=== PATIENT | female | born 1990 | race Caucasian/White ===

== ENCOUNTER 2024-06-02 20:50 | Inpatient (IN) | payer OTHER, MEDICAID ==
[~2024-06-02] VITALS: Ht 162.6 cm; Wt 57.2 kg
[2024-06-02 22:00] LABS: BASOPHILS % 0.5 % (0.0-2.0); HEMATOCRIT. 38.9 % (36.0-48.0); HEMOGLOBIN. 12.9 g/dL (12.0-16.0); LYMPHOCYTES % 34.5 % (20.0-50.0); MEAN CORPUSCULAR HEMOGLOBIN 30.3 pg (28.0-32.0); MEAN CORPUSCULAR HGB CONC 33.3 g/dL (31.0-37.0); MEAN PLATELET VOLUME 8.9 fl (7.4-10.4); MONOCYTES % 6.2 % (2.0-8.0); NEUTROPHILS % 57.8 % (40.0-76.0); PLATELET 221 x1000/uL (130-400); RED BLOOD CELL COUNT 4.27 mill/uL (4.2-5.4); RED CELL DISTRIBUTION WIDTH 13.1 % (11.6-14.6); WHITE BLOOD COUNT 8.4 x1000/uL (4.5-11.0)
[2024-06-02 22:10] LABS: CHLORIDE 105 mEq/L (98-107); POTASSIUM 3.9 mEq/L (3.5-5.1); SODIUM 138 mEq/L (136-145)
[2024-06-02 22:11] LABS: CALCIUM 9.6 mg/dL (8.7-10.4); CARBON DIOXIDE 26 mEq/L (21-32)
[2024-06-02 22:16] LABS: CREATININE 0.8 mg/dL (0.6-1.0); GLUCOSE 86 mg/dL (70-105); UREA NITROGEN BLOOD 13 mg/dL (9-23)
[2024-06-02 22:33] LABS: B-HCG QUANTITATIVE 4240 mIU/mL (<3); TROPONIN I HIGH SENSITIVITY < 4 ng/L (3.0-34)
[2024-06-02 22:37] LABS: D-DIMER < 0.19 mg/L FEU (<0.50); PROTHROMBIN TIME 10.9 sec (9.6-11.0)
[2024-06-03 01:59] LABS: ALANINE AMINOTRANSFERASE 65 IU/L (10-49); ALBUMIN 4.8 g/dL (3.2-4.8); ASPARTATE AMINOTRANSFERASE 28 IU/L (<34); BILIRUBIN DIRECT 0.1 mg/dL (<=3.0); BILIRUBIN TOTAL 0.5 mg/dL (0.1-1.0); PROTEIN TOTAL 7.6 g/dL (6.0-8.3)
[2024-06-03] MEDS ORDERED: IPRATROPIUM/ALBUTEROL 0.5-3(2.5)MG/3ML NEB HHN PRN (11:45)
[2024-06-03] MEDS ORDERED: KETOROLAC 15MG/ML VIAL IV PRN (11:45)
[2024-06-03] MEDS: DEXT 5%/0.45% NACL 1000ML 1,000 ML IV SCH (11:45)
[2024-06-03 11:49] LABS: CLARITY URINE CLEAR (CLEAR); COLOR URINE YELLOW (YELLOW); GLUCOSE URINE NEGATIVE (NEGATIVE); KETONES URINE NEGATIVE (NEGATIVE); LEUKOCYTE ESTERASE URINE 2+ (NEGATIVE); NITRITE URINE NEGATIVE (NEGATIVE); OCCULT BLOOD URINE NEGATIVE (NEGATIVE); PH URINE 7.5 (4.5-8.0); PROTEIN URINE NEGATIVE (NEGATIVE); SPECIFIC GRAVITY URINE 1.017 (1.005-1.030)
[2024-06-03 12:01] LABS: *AMPHETAMINES SCREEN URINE NEGATIVE (NEGATIVE); *BARBITURATES SCREEN URINE NEGATIVE (NEGATIVE); *BENZODIAZEPINES SCREEN URINE NEGATIVE (NEGATIVE); *COCAINE SCREEN URINE NEGATIVE (NEGATIVE); METHADONE URINE SCREEN NEGATIVE (NEGATIVE); OPIATES URINE SCREEN NEGATIVE (NEGATIVE)
[2024-06-03 12:02] LABS: CANNABINOID URINE SCREEN NEGATIVE (NEGATIVE); ECSTASY MDMA SCREEN URINE NEGATIVE (NEGATIVE); PHENCYCLIDINE URINE SCREEN NEGATIVE (NEGATIVE)
[2024-06-03 12:18] LABS: BACTERIA URINE FEW; RBC URINE NONE SEEN /hpf (0-2); SQUAMOUS EPITHELIAL CELL URINE FEW /lpf (RARE/1+); WBC URINE 0-2 /hpf (0-2); YEAST URINE NONE SEEN
[2024-06-03] MEDS: ACETAMINOPHEN 325MG TABLET PO PRN (21:35)
[2024-06-03] MEDS: FAMOTIDINE 20MG TABLET PO SCH (21:35)
[2024-06-03] MEDS: DOCUSATE SODIUM 250MG CAPSULE PO PRN (21:35)
[2024-06-04 00:34] VITALS: BP 112/66; PULSE 94; RESP 18; TEMP 36.696
[2024-06-04 04:00] VITALS: BP 99/59; PULSE 64; RESP 18; TEMP 36.44736; O2SAT 99
[2024-06-04 07:10] LABS: BASOPHILS % 0.4 % (0.0-2.0); EOSINOPHILS % 1.3 % (0.0-5.0); HEMATOCRIT. 40.8 % (36.0-48.0); HEMOGLOBIN. 13.6 g/dL (12.0-16.0); MEAN CORPUSCULAR HEMOGLOBIN 30.2 pg (28.0-32.0); MEAN CORPUSCULAR HGB CONC 33.4 g/dL (31.0-37.0); MEAN CORPUSCULAR VOLUME 90.5 fL (81.0-99.0); MEAN PLATELET VOLUME 8.8 fl (7.4-10.4); MONOCYTES % 5.8 % (2.0-8.0); NEUTROPHILS % 65.5 % (40.0-76.0); PLATELET 219 x1000/uL (130-400); RED BLOOD CELL COUNT 4.51 mill/uL (4.2-5.4); RED CELL DISTRIBUTION WIDTH 13.5 % (11.6-14.6); WHITE BLOOD COUNT 7.9 x1000/uL (4.5-11.0)
[2024-06-04 07:29] LABS: CARBON DIOXIDE 26 mEq/L (21-32); CHLORIDE 106 mEq/L (98-107); POTASSIUM 3.7 mEq/L (3.5-5.1); SODIUM 137 mEq/L (136-145)
[2024-06-04 07:30] LABS: CALCIUM 9.3 mg/dL (8.7-10.4)
[2024-06-04 07:35] LABS: CREATININE 0.6 mg/dL (0.6-1.0); GLUCOSE 92 mg/dL (70-105); TRIGLYCERIDE 98 mg/dL (0-150); UREA NITROGEN BLOOD 9 mg/dL (9-23)
[2024-06-04 07:36] LABS: LDL CHOLESTEROL 110 mg/dL (5-100)
[2024-06-04 07:37] LABS: CHOLESTEROL 155 mg/dL (<200); HDL CHOLESTEROL 40 mg/dL (>65); THYROID STIMULATING HORMONE 2.11 uIU/mL (0.55-4.78)
[2024-06-04 08:00] VITALS: BP 90/58; PULSE 73; RESP 18; TEMP 36.72516; O2SAT 98
[2024-06-04 12:00] VITALS: BP 90/52; PULSE 80; RESP 18; TEMP 36.55848; O2SAT 95
[2024-06-04 16:00] VITALS: BP 90/50; PULSE 76; RESP 18; TEMP 36.50292; O2SAT 98
[2024-06-04 20:00] VITALS: BP 90/54; PULSE 70; RESP 19; TEMP 35.94732; O2SAT 98
[2024-06-05 04:00] VITALS: BP 96/49; PULSE 76; RESP 18; TEMP 36.114; O2SAT 100
[2024-06-05 08:00] VITALS: BP 102/55; PULSE 75; RESP 18; TEMP 36.50292; O2SAT 100
[2024-06-05 08:40] LABS: CHLORIDE 107 mEq/L (98-107); POTASSIUM 3.6 mEq/L (3.5-5.1); SODIUM 137 mEq/L (136-145)
[2024-06-05 08:42] LABS: CALCIUM 9.5 mg/dL (8.7-10.4); CARBON DIOXIDE 24 mEq/L (21-32)
[2024-06-05 08:46] LABS: BASOPHILS % 0.5 % (0.0-2.0); EOSINOPHILS % 1.2 % (0.0-5.0); HEMATOCRIT. 39.9 % (36.0-48.0); HEMOGLOBIN. 13.4 g/dL (12.0-16.0); LYMPHOCYTES % 29.3 % (20.0-50.0); MEAN CORPUSCULAR HEMOGLOBIN 30.7 pg (28.0-32.0); MEAN CORPUSCULAR HGB CONC 33.6 g/dL (31.0-37.0); MEAN CORPUSCULAR VOLUME 91.4 fL (81.0-99.0); MONOCYTES % 6.6 % (2.0-8.0); NEUTROPHILS % 62.4 % (40.0-76.0); PLATELET 225 x1000/uL (130-400); RED BLOOD CELL COUNT 4.36 mill/uL (4.2-5.4); RED CELL DISTRIBUTION WIDTH 13.1 % (11.6-14.6); UREA NITROGEN BLOOD 7 mg/dL (9-23); WHITE BLOOD COUNT 7.9 x1000/uL (4.5-11.0)
[2024-06-05 08:47] LABS: CREATININE 0.5 mg/dL (0.6-1.0); GLUCOSE 96 mg/dL (70-105)
[2024-06-05 08:48] LABS: ALANINE AMINOTRANSFERASE 53 IU/L (10-49)
[2024-06-05 08:49] LABS: ALBUMIN 4.5 g/dL (3.2-4.8); ASPARTATE AMINOTRANSFERASE 21 IU/L (<34); BILIRUBIN DIRECT 0.2 mg/dL (<=3.0); PHOSPHORUS 2.6 mg/dL (2.5-4.9)
[2024-06-05 08:50] LABS: BILIRUBIN TOTAL 0.6 mg/dL (0.1-1.0); PROTEIN TOTAL 7.1 g/dL (6.0-8.3)
[2024-06-05 08:51] LABS: HCG SCREEN POSITIVE
[2024-06-05 12:00] VITALS: BP 95/57; PULSE 74; RESP 18; TEMP 36.83628; O2SAT 100
[2024-06-05] MEDS ORDERED: AMOX1TAB15 MT (13:26)
[2024-06-05] MEDS ORDERED: IBUP-2028 MT (13:26)
[2024-06-05] MEDS ORDERED: OMEP20CA14 MT (13:27)
[2024-06-05 15:04] VITALS: BP 95/57; PULSE 74; TEMP 97.7; O2SAT 100
== END 2024-06-05 16:00 | disposition home or self-care (01) | DRG 832 ==
LOC: ER 20:50 → EDBEDREQTM 06-03 01:21 → EDBEDREQ 06-03 01:21 → 6EST 06-03 01:24 → EDBEDREQSVC 06-03 02:27 → EDBEDREQ 06-03 02:27 → EDBEDREQTM 06-03 02:27 → EDBEDREQSVC 06-03 05:01
PROVIDERS: ADMIT Internal Medicine; ATTEND Internal Medicine
DX: O00.101 Right tubal pregnancy without intrauterine pregnancy (principal); N39.0 Urinary tract infection, site not specified; O23.41 Unspecified infection of urinary tract in pregnancy, first trimester; K59.00 Constipation, unspecified; O09.511 Supervision of elderly primigravida, first trimester; Z3A.01 Less than 8 weeks gestation of pregnancy
CPT/HCPCS: 36415; 76801; 80048; 80061; 80076; 80305; 81003; 83735; 84100; 84443; 84484; 84702; 84703; 85025; 85379; 86850; 86900; 93005; 99291

== ENCOUNTER 2024-08-05 18:47 | Emergency (ER) | payer MEDICAID, OTHER ==
[~2024-08-05] VITALS: Ht 144.8 cm; Wt 59.0 kg
[~2024-08-05 18:47] MED LIST: AMOX1TAB15 MT; IBUP-2028 MT; OMEP20CA14 MT
[2024-08-05 18:55] VITALS: O2SAT 99
[2024-08-05 19:21] LABS: CLARITY URINE CLOUDY (CLEAR); COLOR URINE YELLOW (YELLOW); GLUCOSE URINE NEGATIVE (NEGATIVE); KETONES URINE NEGATIVE (NEGATIVE); LEUKOCYTE ESTERASE URINE 3+ (NEGATIVE); NITRITE URINE POSITIVE (NEGATIVE); OCCULT BLOOD URINE 2+ (NEGATIVE); PROTEIN URINE 1+ (NEGATIVE); SPECIFIC GRAVITY URINE 1.009 (1.005-1.030); UROBILINOGEN URINE 0.2 E.U./dL (0.2-1.0)
[2024-08-05 19:25] LABS: UCG SCREEN NEGATIVE
[2024-08-05 19:45] LABS: SQUAMOUS EPITHELIAL CELL URINE 1+ /lpf (RARE/1+); WBC URINE TNTC /hpf (0-2)
[2024-08-05] MEDS: KETOROLAC 15MG/ML VIAL IM ONE (19:45)
[2024-08-05 19:46] LABS: BACTERIA URINE 1+; YEAST URINE NONE SEEN
[2024-08-05 19:57] LABS: BASOPHILS % 0.3 % (0.0-2.0); EOSINOPHILS % 0.2 % (0.0-5.0); HEMATOCRIT. 41.8 % (36.0-48.0); LYMPHOCYTES % 12.8 % (20.0-50.0); MEAN CORPUSCULAR HEMOGLOBIN 30.1 pg (28.0-32.0); MEAN CORPUSCULAR HGB CONC 33.5 g/dL (31.0-37.0); MEAN CORPUSCULAR VOLUME 89.9 fL (81.0-99.0); MEAN PLATELET VOLUME 9.7 fl (7.4-10.4); MONOCYTES % 5.3 % (2.0-8.0); NEUTROPHILS % 81.4 % (40.0-76.0); PLATELET 246 x1000/uL (130-400); RED BLOOD CELL COUNT 4.64 mill/uL (4.2-5.4); RED CELL DISTRIBUTION WIDTH 12.9 % (11.6-14.6); WHITE BLOOD COUNT 15.3 x1000/uL (4.5-11.0)
[2024-08-05 20:05] LABS: CHLORIDE 105 mEq/L (98-107); POTASSIUM 3.5 mEq/L (3.5-5.1); SODIUM 137 mEq/L (136-145)
[2024-08-05 20:06] LABS: CALCIUM 10.1 mg/dL (8.7-10.4); CARBON DIOXIDE 24 mEq/L (21-32)
[2024-08-05 20:09] LABS: HCG SCREEN NEGATIVE
[2024-08-05 20:11] LABS: CREATININE 0.8 mg/dL (0.6-1.0); GLUCOSE 96 mg/dL (70-105)
[2024-08-05 20:12] LABS: UREA NITROGEN BLOOD 12 mg/dL (9-23)
[2024-08-05 20:13] LABS: ALANINE AMINOTRANSFERASE 39 IU/L (10-49); ALBUMIN 5.3 g/dL (3.2-4.8); ASPARTATE AMINOTRANSFERASE 25 IU/L (<34); BILIRUBIN DIRECT 0.1 mg/dL (<=3.0)
[2024-08-05 20:14] LABS: BILIRUBIN TOTAL 0.5 mg/dL (0.1-1.0); PROTEIN TOTAL 8.9 g/dL (6.0-8.3)
[2024-08-05] MEDS: SODIUM CHLORIDE 0.9% (SEPSIS BOLUS) IV ONE (20:30)
[2024-08-05] MEDS: CEFTRIAXONE 1GM/50ML 50 ML IV ONE (22:38)
[2024-08-05] MEDS ORDERED: CEFP100T8 MT (22:43)
[2024-08-06 00:30] VITALS: BP 115/74; PULSE 83; RESP 16; TEMP 36.61404; O2SAT 100
== END 2024-08-06 00:31 | disposition home or self-care (01) ==
LOC: ER 18:47
DX: A41.9 Sepsis, unspecified organism (principal); R30.0 Dysuria; N12 Tubulo-interstitial nephritis, not specified as acute or chronic; Z87.440 Personal history of urinary (tract) infections
CPT/HCPCS: 80076; 80048; 81003; 81025; 84703; 83605; 85025; 86850; 86900; 86901; 87040; 87086; 87186; 87077; 36415; 84145; 96361; 96365; 96372; 99291; J0696; J1885; J7030; Z7610 ×3